=== PATIENT | male | born 1960 | race Native Hawaiian/Other Pacific Islander ===

== ENCOUNTER 2020-03-17 20:14 | Emergency (ER) | payer OTHER ==
[~2020-03-17] VITALS: Ht 193 cm; Wt 102.1 kg
[2020-03-17 21:01] LABS: PLATELET COUNT 193 K/uL (142-355); POTASSIUM 4.5 mmol/L (3.6-5.2)
[2020-03-17 21:42] VITALS: BP 157/92; TEMP 98.4
[2020-03-18] MEDS ORDERED: WELCHOL625 MG PO (13:49)
[2020-03-18] MEDS ORDERED: PROPRANOLOL60 MG PO (13:51)
[2020-03-18] MEDS ORDERED: CARB25TA29 PO (13:53)
[2020-03-18] MEDS ORDERED: PAROXETIN ER12.5 MG PO (13:54)
[2020-03-18] MEDS ORDERED: DONE5TAB PO (13:54)
[2020-03-18] MEDS ORDERED: CLARITIN10 MG PO (13:55)
[2020-03-18] MEDS ORDERED: FIBER LAXATV625 MG PO (13:55)
[2020-03-18] MEDS ORDERED: ZIPR20CA PO (13:56)
[2020-03-18] MEDS ORDERED: GNP MELATONIN3 MG PO (13:56)
[2020-03-18] MEDS ORDERED: CVS NICOTI21 MG/24 H TD (13:58)
[2020-03-18] MEDS ORDERED: TRIHEXYPHEN5 MG PO (13:59)
[2020-03-18] MEDS ORDERED: TRAZ50TA36 PO (14:01)
[2020-03-18] MEDS ORDERED: TYLENOL325 MG PO (14:01)
[2020-03-18] MEDS ORDERED: [UNRECOGNIZED DRUG - CODE] PO (14:02)
[2020-03-18] MEDS ORDERED: TESSALON PER100 MG PO (14:03)
== END 2020-03-17 21:42 | disposition other institution (70) ==
LOC: ED 20:29
PROVIDERS: Emergency Medicine
DX: F03.91 Unspecified dementia, unspecified severity, with behavioral disturbance (principal); N39.0 Urinary tract infection, site not specified; Z11.59 Encounter for screening for other viral diseases; Z04.6 Encounter for general psychiatric examination, requested by authority
CPT/HCPCS: 36415; 80053; 81000; 85027; 87077; 87086; 87088; 87186; 87635; 93005; 96372; 99283; G2023; J0696; U0003

== ENCOUNTER 2020-04-06 23:39 | Emergency (ER) | payer OTHER ==
[~2020-04-06] VITALS: Ht 193 cm; Wt 111.1 kg
[~2020-04-06 23:39] MED LIST: AMANTADINE100 MG PO; BUPR150T PO; CARB25TA29 PO; CLARITIN10 MG PO; CVS NICOTI21 MG/24 H TD; DONE5TAB PO; FIBER LAXATV625 MG PO; GNP MELATONIN3 MG PO; OLAN2.5T2 PO; OLANZAPINE10 MG PO; PAROXETIN ER12.5 MG PO; PROPRANOLOL60 MG PO; TESSALON PER100 MG PO; TRAZ50TA36 PO; TRIHEXYPHEN5 MG PO; TYLENOL325 MG PO; WELCHOL625 MG PO; ZIPR20CA PO; [UNRECOGNIZED DRUG - CODE] PO
[2020-04-07 00:23] VITALS: BP 126/81; TEMP 100.9
[2020-04-07 00:26] LABS: PLATELET COUNT 296 K/uL (142-355)
[2020-04-07 00:38] LABS: POTASSIUM 3.7 mmol/L (3.6-5.2)
[2020-04-07] MEDS ORDERED: DIVA250T PO (01:25)
[2020-04-07] MEDS ORDERED: ANTI-DIARRHE2 MG PO (01:34)
== END 2020-04-07 00:25 | disposition still patient (30) ==
LOC: ED 23:39
PROVIDERS: Emergency Medicine Emergency Medical Services
DX: R46.89 Other symptoms and signs involving appearance and behavior (principal); F25.8 Other schizoaffective disorders; Z11.59 Encounter for screening for other viral diseases; Z04.6 Encounter for general psychiatric examination, requested by authority
CPT/HCPCS: 36415; 80053; 85027; 87635; 93005; 99283; U0003

== ENCOUNTER 2020-10-11 19:12 | Emergency (ER) | payer OTHER ==
[~2020-10-11] VITALS: Ht 193 cm; Wt 103.0 kg
[2020-10-11 19:12] VITALS: BP 124/78; TEMP 98.3
[~2020-10-11 19:12] MED LIST changes: +904272561 PO; +ACET-206 PO; +ANTI-DIARRHE2 MG PO; +ARIPIPRAZOLE10 MG PO; +CHOL100034 PO; +CLOZ100T PO; +DIPH50IN IM; +DIVA250T PO; +DIVALPROEX500 MG PO; +FOLI1TAB26 PO; +FURO40TA93 PO; +HALO5INJ3 IM; +LORA2INJ21 IM; +MAGN400T4 PO; +MAGNSUS68 PO; +NUEDEXTA 20-10MG CAP PO; +OLAN10INJ IM; +OLANZAPINE5 MG PO; +OXCARBAZEPIN300 MG PO; +POTA20TA4 PO; +PRIM50TA4 PO; +PROP60CA9 PO
[2020-10-11 19:45] LABS: PLATELET COUNT 182 K/uL (142-355)
[2020-10-11] MEDS ORDERED: BUPROPION HYDR150 M1 PO (21:22)
[2020-10-11] MEDS ORDERED: OXCARBAZEPIN150 MG PO (21:23)
[2020-10-11] MEDS ORDERED: CVS ALLERGY REL10 MG PO (21:24)
[2020-10-11] MEDS ORDERED: AMANTADINE100 MG PO (21:27)
[2020-10-11] MEDS ORDERED: ABILIFY MYCITE15 MG PO (21:28)
[2020-10-11] MEDS ORDERED: CARB25TA29 PO (21:30)
[2020-10-11] MEDS ORDERED: COLESEVELAM HY625 MG PO (21:32)
[2020-10-11] MEDS ORDERED: DIVALPROEX250 M1 PO (21:35)
[2020-10-11] MEDS ORDERED: DIVALPROEX500 MG PO (21:39)
[2020-10-11] MEDS ORDERED: FIBER LAXATV625 MG PO (21:41)
[2020-10-11] MEDS ORDERED: KP FOLIC ACID1 MG PO (21:42)
[2020-10-11] MEDS ORDERED: I-VITE PO (21:45)
[2020-10-11] MEDS ORDERED: MAGOX 400400 M1 PO (21:47)
[2020-10-11] MEDS ORDERED: KLOR-CON M2020 MEQ PO (21:49)
[2020-10-11] MEDS ORDERED: [UNRECOGNIZED DRUG - CODE] PO (21:50)
[2020-10-11] MEDS ORDERED: PROPRANOLOL ER PO (21:54)
[2020-10-11] MEDS ORDERED: VITAMIN D1000 UNI1 PO (21:55)
[2020-10-11] MEDS ORDERED: BANOPHEN50 MG PO (21:57)
[2020-10-11] MEDS ORDERED: [UNRECOGNIZED DRUG - OTHER] PO (21:59)
[2020-10-11] MEDS ORDERED: DONEPEZIL HYDRO10 M1 PO (22:00)
[2020-10-11] MEDS ORDERED: [UNRECOGNIZED DRUG - OTHER] PO (22:02)
[2020-10-11] MEDS ORDERED: NUDEXTA PO ×2 (22:04→22:05)
[2020-10-11] MEDS ORDERED: OLANZAPINE20 M1 PO (22:06)
[2020-10-11] MEDS ORDERED: TRAZ100T PO (22:07)
[2020-10-11] MEDS ORDERED: PROSTAT PO (22:09)
[2020-10-11] MEDS ORDERED: NAMENDA5 MG PO (22:10)
[2020-10-11] MEDS ORDERED: TYLENOL325 MG PO (22:12)
[2020-10-11] MEDS ORDERED: TRAMADOL HYDROC50 MG PO (22:13)
[2020-10-11] MEDS ORDERED: BENZONATATE100 MG PO (22:14)
[2020-10-11] MEDS ORDERED: ANTI-DIARRHE2 MG PO (22:17)
[2020-10-11] MEDS ORDERED: MAGNSUS68 PO (22:18)
[2020-10-11] MEDS ORDERED: FUROSEMIDE40 MG PO (22:38)
[2020-10-19] MEDS ORDERED: TRAZ50TA36 PO (08:57)
[2020-10-19] MEDS ORDERED: PROP60CA9 PO (08:57)
[2020-10-19] MEDS ORDERED: NICOTINE T14 MG/241 TD (08:58)
[2020-10-19] MEDS ORDERED: PRIM50TA4 PO (08:58)
[2020-10-19] MEDS ORDERED: POTA20TA4 PO (08:58)
[2020-10-19] MEDS ORDERED: MEMA5TAB PO (08:58)
[2020-10-19] MEDS ORDERED: OXCARBAZEPIN300 MG PO (08:58)
[2020-10-19] MEDS ORDERED: FOLI1TAB26 PO (08:59)
[2020-10-19] MEDS ORDERED: MELATONIN MAXIMU5 MG PO (08:59)
[2020-10-19] MEDS ORDERED: FURO40TA93 PO (08:59)
[2020-10-19] MEDS ORDERED: DIVALPROEX500 MG PO (08:59)
[2020-10-19] MEDS ORDERED: CHOL100034 PO (09:00)
[2020-10-19] MEDS ORDERED: CLOZ100T PO (09:00)
[2020-10-19] MEDS ORDERED: DIVA250T PO (09:00)
[2020-10-19] MEDS ORDERED: NUEDEXTA 20-10MG CAP PO (09:00)
[2020-10-19] MEDS ORDERED: CARB25TA29 PO (09:00)
[2020-10-19] MEDS ORDERED: ARIPIPRAZOLE10 MG PO (09:01)
[2020-10-19] MEDS ORDERED: AMANTADINE100 MG PO (09:01)
== END 2020-10-11 20:33 | disposition still patient (30) ==
LOC: ED 19:12
PROVIDERS: Emergency Medicine Emergency Medical Services
DX: F03.91 Unspecified dementia, unspecified severity, with behavioral disturbance (principal); Z11.52 Encounter for screening for COVID-19; Z04.6 Encounter for general psychiatric examination, requested by authority
CPT/HCPCS: 36415; 80053; 81000; 85027; 87635; 93005; 99283; U0003

== ENCOUNTER 2021-05-16 22:24 | Emergency (ER) | payer OTHER ==
[~2021-05-16] VITALS: Ht 193 cm; Wt 98.4 kg
[2021-05-16 22:24] VITALS: BP 113/48; TEMP 98.1
[~2021-05-16 22:24] MED LIST changes: +ABILIFY MYCITE10 MG PO; +ABILIFY MYCITE15 MG PO; +ABILIFY20 MG PO; +BANOPHEN50 MG PO; +BENZONATATE100 MG PO; +BUPROPION HYDR150 M1 PO; +CITA20TA2 PO; +COLESEVELAM HY625 MG PO; +COLESTIPOL1 GM PO; +CVS ALLERGY REL10 MG PO; +DIVALPROEX SOD DR PO; +DIVALPROEX250 M1 PO; +DONEPEZIL HYDRO10 M1 PO; +FIBER625 MG PO; +FUROSEMIDE40 MG PO; +GABA300C2 PO; +I-VITE PO; +KLOR-CON M2020 MEQ PO; +KP FOLIC ACID1 MG PO; +MAGOX 400400 M1 PO; +MEDR2.5T19 PO; +MELATONIN MAXIMU5 MG PO; +MELATONIN5 M2 PO; +MEMA10TA2 PO; +MEMA5TAB PO; +NAMENDA5 MG PO; +NICOTINE T14 MG/241 TD; +NUDEXTA PO; +NUEDEXTA 20-10 PO; +NUPLAZID34 MG PO; +OLANZAPINE20 M1 PO; +OXCARBAZEPIN150 MG PO; +POTASSIUM CL ER PO; +PRIMIDONE250 MG PO; +PROPRANOLOL ER PO; +PROSTAT PO; +TRAMADOL HYDROC50 MG PO; +TRAZ100T PO; +TRILEPTAL150 MG PO; +VITAMIN D1000 UNI1 PO; +VITAMIN D1000 UNIT PO; +[UNRECOGNIZED DRUG - OTHER] PO; +[UNRECOGNIZED DRUG - OTHER] PO
[2021-05-16 23:26] LABS: PLATELET COUNT 153 K/uL (142-355)
[2021-05-16 23:29] LABS: POTASSIUM 3.9 mmol/L (3.6-5.2)
[2021-05-17] MEDS ORDERED: DIVA500T2 PO (01:38)
[2021-05-17] MEDS ORDERED: HALO5INJ3 IM (02:08)
== END 2021-05-17 00:43 | disposition still patient (30) ==
LOC: ED 22:24
PROVIDERS: Emergency Medicine Emergency Medical Services
DX: R46.89 Other symptoms and signs involving appearance and behavior (principal); F20.89 Other schizophrenia; Z11.52 Encounter for screening for COVID-19; Z04.6 Encounter for general psychiatric examination, requested by authority
CPT/HCPCS: 36415; 80053; 85027; 87635; 93005; 99283; U0003

== ENCOUNTER 2021-07-22 22:53 | Emergency (ER) | payer OTHER ==
[~2021-07-22] VITALS: Ht 193 cm; Wt 100.2 kg
[2021-07-22 22:53] VITALS: BP 123/57; TEMP 97.6
[~2021-07-22 22:53] MED LIST changes: +CITALOPRAM20 MG PO; +DIVA500T2 PO; +PROPRANOLOL PO
[2021-07-22 23:32] LABS: PLATELET COUNT 134 K/uL (142-355)
[2021-07-22 23:43] LABS: POTASSIUM 3.7 mmol/L (3.6-5.2)
[2021-07-24] MEDS ORDERED: FIBER LAXTIV0.52 GM PO (08:59)
== END 2021-07-23 | disposition still patient (30) ==
LOC: ED 22:53
PROVIDERS: Emergency Medicine
DX: F03.91 Unspecified dementia, unspecified severity, with behavioral disturbance (principal); Z11.52 Encounter for screening for COVID-19; Z04.6 Encounter for general psychiatric examination, requested by authority
CPT/HCPCS: 36415; 80053; 85027; 87635; 93005; 99283; U0003